=== PATIENT | male | born 1990 ===

== ENCOUNTER → 2022-10-24 | Outpatient (CLI) | payer OTHER ==
--- NOTE | 2022-10-24 10:37 | MR ---
EXAMINATION TYPE: MR ankle LT and foot wo con DATE OF EXAM: 10/24/2022 COMPARISON: NONE HISTORY: Left posterior ankle pain/ mid foot pain Multiplanar, multisequence noncontrast imaging of the left foot and ankle is submitted. The Achilles tendon is intact. There is marrow edema involving the posterior superior margin of the calcaneus compatible with large contusion. There is marrow edema involving the anterior calcaneus compatible with contusion. There is abnormal marrow edema within the substance of the navicular bone with findings suggestive of a hairline fracture. There is marrow edema within the cuboid bone compatible with bone bruise/contusion. There is diffuse subcutaneous edema. The Peroneus longus and brevis tendons demonstrate no abnormal signal. The visualized portions of th e posterior tibialis, flexor digitorum longus, flexor halluciss longus demonstrate no evidence of te ar. No fluid signal is seen within the tibiofibular synchondrosis. The anterior and posterior tibiofibul ar ligaments are intact. The posterior talofibular ligament is intact. The deltoid complex is intact. Calcaneal spurs incidentally noted. The sinus tarsi has a normal appearance. Assessment of the Lisfranc ligament. Lisfranc ligament appears to be grossly intact with normal artic ulations of the tarsometatarsal junction. Mild hypertrophic arthropathy of the first MTP joint. IMPRESSION: 1. Extensive soft tissue edema with multiple bone contusions. Diffuse marrow edema involving the post erior superior and anterior margin of the calcaneus, tarsal navicular and cuboid bones. Findings Comp atible with bone contusion. 2. Hairline fracture of the tarsal navicular without significant displacement. 3. Subchondral fracture of the anterior margin of the calcaneus at the calcaneocuboid junction. Bone contusion involving the superior posterior margin of the calcaneus compatible with microtrabecul ar fracture. 4. Limited assessment of the Lisfranc ligament. Grossly appears intact. Cannot exclude a mild strain. Recommend short-term follow-up MRI for further assessment.
--- NOTE | 2022-10-24 10:37 | MR ---
EXAMINATION TYPE: MR ankle LT and foot wo con DATE OF EXAM: 10/24/2022 COMPARISON: NONE HISTORY: Left posterior ankle pain/ mid foot pain Multiplanar, multisequence noncontrast imaging of the left foot and ankle is submitted. The Achilles tendon is intact. There is marrow edema involving the posterior superior margin of the calcaneus compatible with large contusion. There is marrow edema involving the anterior calcaneus compatible with contusion. There is abnormal marrow edema within the substance of the navicular bone with findings suggestive of a hairline fracture. There is marrow edema within the cuboid bone compatible with bone bruise/contusion. There is diffuse subcutaneous edema. The Peroneus longus and brevis tendons demonstrate no abnormal signal. The visualized portions of th e posterior tibialis, flexor digitorum longus, flexor hallucis longus demonstrate no evidence of tea r. No fluid signal is seen within the tibiofibular synchondrosis. The anterior and posterior tibiofibul ar ligaments are intact. The posterior talofibular ligament is intact. The deltoid complex is intact. Calcaneal spurs incidentally noted. The sinus tarsi has a normal appearance. Assessment of the Lisfranc ligament. Lisfranc ligament appears to be grossly intact with normal artic ulations of the tarsometatarsal junction. Mild hypertrophic arthropathy of the first MTP joint. IMPRESSION: 1. Extensive soft tissue edema with multiple bone contusions. Diffuse marrow edema involving the post erior superior and anterior margin of the calcaneus, tarsal navicular and cuboid bones. Findings Comp atible with bone contusion. 2. Hairline fracture of the tarsal navicular without significant displacement. 3. Subchondral fracture of the anterior margin of the calcaneus at the calcaneocuboid junction. Bone contusion involving the superior posterior margin of the calcaneus compatible with microtrabecul ar fracture. 4. Limited assessment of the Lisfranc ligament. Grossly appears intact. Cannot exclude a mild strain. Recommend short-term follow-up MRI for further assessment.
== END | disposition home or self-care (01) ==
LOC: RADMRIMAIN 08:00
PROVIDERS: ATTEND Emergency Medicine
DX: S93.402D Sprain of unspecified ligament of left ankle, subsequent encounter (principal); S93.602D Unspecified sprain of left foot, subsequent encounter; S92.022A Displaced fracture of anterior process of left calcaneus, initial encounter for closed fracture; R60.0 Localized edema; Y99.9 Unspecified external cause status

== ENCOUNTER → 2023-12-18 | Outpatient (CLI) | payer OTHER ==
--- NOTE | 2023-12-19 02:05 | MR ---
EXAMINATION TYPE: MR knee RT wo con DATE OF EXAM: 12/18/2023 COMPARISON: NONE HISTORY: M25.561 M25.461 Z87.828 R19.00. Pain and swelling for 2 weeks TECHNIQUE: Multiplanar, multisequence images of the knee is performed without IV contrast. FINDINGS: MEDIAL MENISCUS: Medial extrusion medial meniscus. Truncated appearance posterior horn with abnormal signal extending to articular surface, 2 vertical areas of abnormal signal noted. LATERAL MENISCUS: Vertical oriented signal central body extends to articular surface sagittal image 3 1. CRUCIATE LIGAMENTS: The posterior cruciate ligament is intact and unremarkable. Normal-appearing ante rior cruciate ligament not identified COLLATERAL LIGAMENTS: The medial collateral ligament and lateral collateral ligament complex are inta ct and unremarkable. EXTENSOR MECHANISM: Visualized quadriceps and patellar tendons are intact. EFFUSION: Small to moderate size suprapatellar joint effusion. POPLITEAL CYST: Small size popliteal/castillo cyst. TRICOMPARTMENT SPACES: Moderate tricompartment spurring annular narrowing. CARTILAGE: Cartilaginous loss medial tibiofemoral compartment. Some less prominent cartilaginous loss lateral tibiofemoral compartment. BONE MARROW SIGNAL: Susceptibility artifact from prior surgical change in the posterior distal femur and anterior tibia. OTHER: No additional significant abnormality is appreciated. IMPRESSION: 1. Suspect recurrent full-thickness tear of the prior surgically repaired anterior cruciate ligament. 2. Full-thickness tears posterior horn of medial meniscus. 3. Full-thickness tear central body of lateral meniscus. 4. At least moderate tricompartment degenerative changes are present as detailed above quite prominen t for patient's chronologic age. 5. Small to moderate-sized suprapatellar joint effusion. 6. Small sized popliteal cyst. [facility], , 12/19/2023 2:03 AM
--- NOTE | 2023-12-19 16:46 | CT ---
EXAMINATION TYPE: CT abdomen wo con DATE OF EXAM: 12/18/2023 COMPARISON: None INDICATION: Palpable mass x 2 years, BB marker placed DLP: 1842.7 mGycm, Automated exposure control for dose reduction was used. CONTRAST: 0 mL of Isovue 300. Study performed without Oral Contrast TECHNIQUE: Axial images were obtained from above the diaphragm to the iliac crests in the axial plane at 5 mm thick sections. Reconstructed images are reviewed on the computer in the coronal plane. FINDINGS: Limited CT sections are obtained the lung bases. The lung bases are clear. CT ABDOMEN: BB is placed at a palpable region in the left superior periumbilical region. No underlyin g subcutaneous or deep intraperitoneal mass evident at this level. No abnormality to correlate with p hysical findings. Liver: Normal Spleen: Normal Pancreas: Normal Adrenal glands: The adrenal glands are normal. Gallbladder: Normal Kidneys: No masses are evident. No hydronephrosis is present. No cysts are present. There is a 0.4 cm calcification at the inferior pole left kidney. This is not obstructing. Aorta: Normal Inferior vena cava: Normal. CT upper pelvis: Loops of bowel within the abdomen and pelvis are normal. This study is without oral contrast limi ting bowel evaluation. Appendix: Normal as visualized. IMPRESSION: 1. Nonobstructing inferior pole left renal stone. 2. No suspicious abnormality to correlate for palpable abdominal abnormality [facility], Workstation: [facility], 12/19/2023 4:43 PM
== END ==
LOC: RADMRIMAIN 15:32
PROVIDERS: ATTEND Family Medicine
DX: M25.561 Pain in right knee (principal); M25.461 Effusion, right knee; Z87.828 Personal history of other (healed) physical injury and trauma; R19.00 Intra-abdominal and pelvic swelling, mass and lump, unspecified site; N20.0 Calculus of kidney
CPT/HCPCS: 74150

== ENCOUNTER 2024-09-27 17:48 | Emergency (ER) | payer OTHER ==
[2024-09-27 18:00] VITALS: TEMP 98.3
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
[2024-09-27] MEDS: LIDOCAINE/EPINEPHR/TETRACAINE 5 ML BOTTLE TOPICAL ONE (20:03)
[2024-09-27] MEDS: MORPHINE SULFATE 4 MG/ML SYRINGE IVP STA (20:06)
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
[2024-09-27] MEDS: TOPICAL SKIN ADHESIVE 1 EACH AMP TOPICAL ONE (20:46)
[2024-09-27] MEDS: ACETAMINOPHEN TAB 500 MG TAB PO STA (20:54)
[2024-09-27] MEDS: IBUPROFEN 800 MG TAB PO STA (20:54)
[2024-09-27 20:57] VITALS: BP 144/99; PULSE 77; RESP 18
== END 2024-09-27 21:09 | disposition home or self-care (01) ==
LOC: EC 17:48
DX: S01.81XA Laceration without foreign body of other part of head, initial encounter (principal); F17.200 Nicotine dependence, unspecified, uncomplicated; Z91.040 Latex allergy status; Z91.041 Radiographic dye allergy status; V49.40XA Driver injured in collision with unspecified motor vehicles in traffic accident, initial encounter; Y92.410 Unspecified street and highway as the place of occurrence of the external cause
CPT/HCPCS: 12011; 70450; 70486; 72125; 99284